=== PATIENT | female | born 1990 | race Caucasian/White ===

== ENCOUNTER 2017-06-24 05:53 | Emergency (ER) | payer OTHER ==
[~2017-06-24] VITALS: Ht 154.9 cm; Wt 55.0 kg
[2017-06-24 05:55] VITALS: BP 115/70; PULSE 83; RESP 16; TEMP 98.8; O2SAT 100
[2017-06-24] MEDS ORDERED: BUSP10TA PO (05:59)
[2017-06-24] MEDS ORDERED: ZOLO50TA PO (05:59)
[2017-06-24] MEDS ORDERED: NORG1TAB29 PO (05:59)
--- NOTE | 2017-06-24 06:12 | PD ---
HPI Chief Complaint: Complaint Time Seen by Provider: 06:02 Travel History International Travel<30 days: No Contact w/Intl Traveler<30days: No Traveled to known affect area: No History of Present Illness HPI Patient is a 27-year-old female presenting to the emergency room for evaluation of dysuria. Patient states she woke up this morning when she urinated she felt a pelvic pain. She reports that the same thing happened on Monday when she went for her Pap smear. She denies any vaginal discharge or bleeding. She currently is pain-free. It appears only happen with the first void in the morning. She reports it is a cramping pain, her pain is rated a 5 out of 10. Symptom onset was sudden and brief. There are no alleviating factors. Symptoms appear to be exacerbated with urination. PFSH Past Medical History Depression: Yes Immunizations Current: Yes Influenza Vaccination: Yes ?: Not LMP: MAY 2017 : 0 Past Surgical History Surgical History: No Previous Surgery Social History Alcohol Use: Yes (SOCIAL) Tobacco Use: No Substance Use: No Allergies-Medications (Allergen,Severity, Reaction): Coded Allergies: No Known Allergies (Unverified Adverse Reaction, Unknown, 06/24/17) Reported Meds & Prescriptions Reported Meds & Active Scripts Active Reported Low-Ogestrel (Norgestrel-Ethinyl Estradiol) 0.3-30 Mg-Mcg Tab 1 Tab PO DAILY Buspirone (Buspirone HCl) 10 Mg Tab 10 Mg PO DAILY Zoloft (Sertraline HCl) 50 Mg Tab 50 Mg PO DAILY Review of Systems Except as stated in HPI: all other systems reviewed are Neg Genitourinary: Positive: Dysuria, Pelvic Pain (Cramping) Physical Exam Narrative GENERAL: Well-developed, well-nourished, alert female. Presenting in no acute distress. SKIN: Warm and dry. HEAD: Normocephalic. EYES: No scleral icterus. No injection or drainage. NECK: Supple, trachea midline. No JVD or lymphadenopathy. CARDIOVASCULAR: Regular rate and rhythm without murmurs, gallops, or rubs. RESPIRATORY: Breath sounds equal bilaterally. No accessory muscle use. GASTROINTESTINAL: Abdomen soft, non-tender, nondistended. MUSCULOSKELETAL: No cyanosis, or edema. BACK: Nontender without obvious deformity. No CVA tenderness. Data Data Last Documented VS Vital Signs Date Time Temp Pulse Resp B/P (MAP) Pulse Ox O2 Delivery O2 Flow Rate FiO2 06/24/17 05:55 98.8 83 16 115/70 (85) 100 Orders Orders Urinalysis - C+S If Indicated (06/24/17 06:01) Labs Laboratory Tests Test 06/24/17 06:09 [facility] Medical Decision Making Medical Screen Exam Complete: Yes Emergency Medical Condition: Yes Interpretation(s) Vital Signs Date Time Temp Pulse Resp B/P (MAP) Pulse Ox O2 Delivery O2 Flow Rate FiO2 06/24/17 05:55 98.8 83 16 115/70 (85) 100 Differential Diagnosis UTI versus bladder spasms versus pyelonephritis versus STD versus other Narrative Course Patient is a 27-year-old female presenting for evaluation of urinary symptoms and pelvic cramping. 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 Symptoms may be related to bladder cramping/spasms after the first void in the morning. Will check a urinalysis at this time. Patient is well-appearing and her vital signs are stable. Exam is otherwise benign. Care of patient transferred to [facility]. Niyah Bowie Jun 24, 2017 06:12
[2017-06-24 07:25] LABS: BACTERIA, URINE MANY /hpf; BILIRUBIN, URINE NEG (NEG); BLOOD, URINE MOD (NEG); GLUCOSE,URINE NEG (NEG); KETONE, URINE NEG (NEG); MUCUS URINE FEW /lpf (OCC); NITRITE,URINE NEG (NEG); PH, URINE 5.5 (5.0-8.5); SQUAMOUS EPITHELIAL CELL URINE 1 /hpf (0-5); URINE COLOR LIGHT-YELLOW (YELLW/STRAW); URINE LEUKOCYTE ESTERASE LARGE (NEG); WHITE BLOOD CELL CLUMPS OCC
[2017-06-24] MEDS ORDERED: CEPH-460 PO (07:36)
[2017-06-24] MEDS ORDERED: PHEN0.4T PO (07:36)
[2017-06-24] MEDS ORDERED: IBUP1TAB7 PO (07:36)
--- NOTE | 2017-06-24 07:37 | PD ---
Physical Exam Time Seen by Provider: 07:34 Narrative I received report from ALBERT Flores at change of shift. See her note for initial history and physical. Data Data Last Documented VS Vital Signs Date Time Temp Pulse Resp B/P (MAP) Pulse Ox O2 Delivery O2 Flow Rate FiO2 06/24/17 05:55 98.8 83 16 115/70 (85) 100 Orders Orders Urinalysis - C+S If Indicated (06/24/17 06:01) Urine Culture (06/24/17 06:09) Labs Laboratory Tests Test 06/24/17 06:09 Urine Color LIGHT-YELLOW Urine Turbidity HAZY Urine pH 5.5 Urine Specific [place] 1.020 Urine Protein TRACE mg/dL Urine Glucose (UA) NEG mg/dL Urine Ketones NEG mg/dL Urine Occult Blood MOD Urine Nitrite NEG Urine Bilirubin NEG Urine Urobilinogen LESS THAN 2.0 MG/DL Urine Leukocyte Esterase LARGE Urine RBC 37 /hpf Urine WBC /hpf Urine WBC Clumps OCC Urine Squamous Epithelial Cells 1 /hpf Urine Bacteria MANY /hpf Urine Mucus FEW /lpf Microscopic Urinalysis Comment CULTURE INDICATED MDM Supervised Visit with LEONA: No Narrative Course I received report from ALBERT Flores at change of shift. See her note for initial history and physical. Urinalysis pending. 0734: Urinalysis with signs of infection. Keflex and Pyridium prescribed for home. Instructed patient to follow up with primary care provider. Patient verbalizes understanding and agreement with treatment plan. Patient is medically cleared and stable for discharge. Discussed reasons to return to the emergency department. Patient agrees with treatment plan. The patients vital signs are stable and the patient is stable for outpatient follow-up and treatment. Patient discharged home, stable and in no acute distress. Diagnosis Primary Impression: UTI (urinary tract infection) Qualified Codes: N39.0 - Urinary tract infection, site not specified; R31.9 - Hematuria, unspecified Referrals: [facility] Primary Care Physician Patient Instructions: General Instructions, Urinary Tract Infection in Women ( ED) Additional Instruction: Take antibiotics as prescribed and complete full course Take Pyridium for bladder spasms: Pyridium will turn your urine bright orange Drink plenty of fluids Maintain good personal hygiene Follow-up with primary care provider Return to the emergency department immediately with worsening of symptoms Med/Other Pt SpecificInfo: Prescription(s) given Scripts Ibuprofen (Ibuprofen) 800 Mg Tab 800 MG PO Q6HR Y for PAIN, #20 TAB 0 Refills Prov: Ramonita Benavides 06/24/17 Phenazopyridine (Pyridium) 100 Mg Tab 100 MG PO Q8H Y for DYSURIA for 3 Days, #9 TAB 0 Refills Prov: Ramonita Benavides 06/24/17 Cephalexin (Keflex) 500 Mg Cap 500 MG PO Q12H for Infection for 7 Days, #14 CAP 0 Refills Prov: Ramonita Benavides 06/24/17 Disposition: 01 DISCHARGE HOME Condition: Stable Ramonita Benavides Jun 24, 2017 07:37
[2017-06-24] MEDS ORDERED: CEPHALEXIN MONOHYDRATE 500 MG CAP PO ONE (07:45)
== END 2017-06-24 07:47 | disposition home or self-care (01) ==
LOC: NEPD 05:53
DX: N39.0 Urinary tract infection, site not specified (principal); B96.20 Unspecified Escherichia coli [E. coli] as the cause of diseases classified elsewhere; F32.9 Major depressive disorder, single episode, unspecified
CPT/HCPCS: 81001; 87077; 87086; 87186; 99283